=== PATIENT | female | born 1980 | race African-American/Black ===

== ENCOUNTER 2017-04-13 04:29 | Inpatient (IN) | payer OTHER ==
[2017-04-13] MEDS ORDERED: ZOFRAN IV PRN (05:31)
[2017-04-13] MEDS ORDERED: MINERAL OIL PO PRN (05:31)
[2017-04-13] MEDS ORDERED: XYLOCAINE 2% INFILTRATI ONE (05:31)
[2017-04-13] MEDS ORDERED: SUBLIMAZE IV PRN (05:31)
[2017-04-13] MEDS ORDERED: BRETHINE SUB-Q PRN (05:31)
[2017-04-13] MEDS ORDERED: ePHEDrine SULFATE IV PRN (05:31)
[2017-04-13 05:53] LABS: Hematocrit 39.3 % (30.3-42.9); Mean Corpuscular HGB Conc 33 % (30-34); Mean Corpuscular Hemoglobin 31 pg (28-32); Mean Corpuscular Volume 95 fl (79-97); Platelet Count 258 K/mm3 (140-440); Red Blood Count 4.15 M/mm3 (3.65-5.03); Red Cell Distribution Width 13.1 % (13.2-15.2); White Blood Count 12.1 K/mm3 (4.5-11.0)
--- NOTE | 2017-04-13 05:53 | History and Physical Report ---
History of Present Illness Date of examination: 04/13/17 (pt presents to Triage with SROM) Date of admission: 04/13/17 04:42 Chief complaint: my water broke History of present illness: EDC Confirmation: 05/02/2017 Gestational Age: 13 4/7 weeks Past History : 1 Past Medical History: Hepatitis Bsays GI doc says her viral load is very low and needs no meds Long B Pate DO [address] [facility] [address] [facility] Past Surgical History: Reviewed history and no changes required: negative Past Medical History Anesthesia Complications: negative Anemia: negative Autoimmune Disorder: negative Bleeding Disorder: negative Blood Transfusions: negative Breast Disease: negative Diabetes: negative Heart Disease: negative Hypertension: negative Hepatitis/Liver Disease: positive Kidney Disease/UTI: negative Neurologic/Epilepsy/Migraines: negative Phlebitis/Varicosities: negative Psychiatric: negative Pulmonary Disease/Asthma: negative Thyroid Disease: negative Hospitalizations: negative Surgery (Non-obstetrician and gynaecologist): negative Abnormal PAP: negative ROLO Exposure: negative Infertility: negative Uterine Anomaly: negative Uterine Surgery (not C/S): negative Other Gynecologic Problems: negative Infection History Hx of STD: none HIV Risk Eval: low risk Hepatitis B Risk Eval: low risk Personal hx. of genital herpes: no Partner hx. of genital herpes: no Varicella/Chicken Pox Status: Previous Disease Genetic History ADVANCED MATERNAL AGE Congenital Heart Defect: Mom: no Dad: no Basil Disease: Mom: no Dad: no Thalassemia Mom: no Dad: no Neural Tube Defect Mom: no Dad: no Down's Syndrome Mom: no Dad: no Ortega-Sachs Mom: no Dad: no Sickle Cell Disease/Trait Mom: no Dad: no Hemophilia Mom: no Dad: no Muscular Dystrophy Mom: no Dad: no Cystic Fibrosis Mom: no Dad: no Carroll Chorea Mom: no Dad: no Mental Retardation Mom: no Dad: no Fragile X Mom: no Dad: no Other Genetic/Chromosomal Disorder Mom: no Dad: no Child w/other defect Mom: no Dad: no FALSECurrent Allergies (reviewed today): * SEAFOOD (Critical) Laboratory Results Routine Urinalysis Leukocytes: negative Nitrite: negative Urobilinogen: negative Protein: negative Blood: negative Ketone: negative Bilirubin: negative Glucose: negative Urine HCG: positive Review of Systems General Denies fever, chills, sweats, anorexia, fatigue, weakness, malaise, weight loss and sleep disorder. Denies nausea, vomiting, headache, swelling of legs, abdominal pain, vaginal discharge, vaginal bleeding and contractions. Denies vaginal discharge, incontinence, dysuria, hematuria, urinary frequency, amenorrhea, menorrhagia, abnormal vaginal bleeding, pelvic pain, genital sores, decreased libido, painful periods, painful sex, urinary urgency, hot flashes, vaginal dryness, vaginal itching and vaginal odor. CV Denies chest pains, palpitations, syncope, dyspnea on exertion, orthopnea, PND and peripheral edema. Resp Denies cough, dyspnea at rest, excessive sputum, hemoptysis, wheezing and pleurisy. GI Denies nausea, vomiting, diarrhea, constipation, change in bowel habits, abdominal pain, melena, hematochezia, jaundice, gas/bloating, indigestion/ heartburn, dysphagia and odynophagia. Endo Denies cold intolerance, heat intolerance, polydipsia, polyphagia, polyuria and unusual weight change. Breast Denies left breast lump, right breast lump, nipple discharge, bloody discharge from nipple, breast pain, abnormal mammogram and breast enlargement. MS Denies back pain, joint pain, joint swelling, muscle cramps, muscle weakness, stiffness, arthritis, sciatica, restless legs, leg pain at night and leg pain with exertion. Derm Denies rash, itching, dryness and suspicious lesions. Neuro Denies paralysis, paresthesias, headache, seizures, tremors, vertigo, transient blindness, frequent falls, frequent headaches and difficulty walking. Psych Denies depression, anxiety, irritability and mood swings. Eyes Denies blurring, diplopia, irritation, discharge, vision loss, eye pain and photophobia. ENT Denies earache, ear discharge, tinnitus, decreased hearing, nasal congestion, nosebleeds, sore throat and hoarseness. Allergy Denies urticaria, allergic rash, hay fever and recurrent infections. Heme Denies abnormal bruising, bleeding and enlarged lymph nodes. PHYSICAL EXAM HEENT: PERRLA, normal conjunctiva, external nose and nasal mucosa normal, oropharynx clear Neck/Thyroid: supple, thyroid normal Skin no significant abnormal lesions or rashes Chest: respiratory effort normal, clear to auscultation Breasts: normal without skin changes or masses CV: regular, normal S1-S2, no murmur, no rub, no gallop Abdomen: normal bowel sounds, soft, nontender, no HSM Musculoskeletal: grossly normal ROM in joints, no joint tenderness or muscle weakness Neuro: grossly normal DTRs, sensation, strength, cranial nerves Extremities: no clubbing, cyanosis, or edema [employer]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 Vulva/Vagina: No lesions, normal BUS, normal rugae Cervix: No lesions; no cervical motion tenderness Uterus: normal size and position, midline, mobile Fundal Ht: 12 Adnexae: no masses or tenderness Rectovaginal: no masses or tenderness Medications and Allergies Allergies Allergy/AdvReac Type Severity Reaction Status Date / Time SEAFOOD AdvReac Itching Uncoded 10/06/16 11:46 Home Medications Medication Instructions Recorded Confirmed Last Taken Type Nitrofurantoin Coos/M-Cryst 100 mg PO Q12HR #10 capsule 10/05/16 Unknown Rx [Macrobid CAP] Vit No.129/Iron/FA 1 each PO QDAY #30 tablet 10/05/16 Unknown Rx [ Tablet] Active Meds: Active Medications Ephedrine Sulfate (Ephedrine Sulfate) 10 mg IV Q2M PRN PRN Reason: Hypotension Stop: 04/13/17 05:36 Fentanyl (Sublimaze) 100 mcg IV Q2H PRN PRN Reason: Labor Pain Lactated Ringer's (Lactated Ringers) 1,000 mls @ 125 mls/hr IV DIRECT ROSA Oxytocin/Sodium Chloride (Pitocin/Ns 20 Unit/1000ml Drip) 20 units in 1,000 mls @ 125 mls/hr IV DIRECT ROSA Lidocaine (Xylocaine 2%) 20 ml INFILTRATI ONCE ONE Stop: 04/13/17 05:32 Mineral Oil (Mineral Oil) 30 ml PO QHS PRN PRN Reason: Constipation Ondansetron HCl (Zofran) 4 mg IV Q8H PRN PRN Reason: Nausea And Vomiting Terbutaline Sulfate (Brethine) 0.25 mg SUB-Q ONCE PRN PRN Reason: Hyperstimulation/Hypertonicity Stop: 04/13/17 05:32 - Physical Exam Breasts: Positive: deferred Cardiovascular: Regular rate, Normal S1, Normal S2 Lungs: Positive: Normal air movement Abdomen: Positive: normal appearance, soft, normal bowel sounds. Negative: distention, tenderness Genitourinary (Female): Positive: normal external genitalia Vulva: both: normal Vagina: Positive: normal moisture. Negative: discharge Cervix: Negative: lesion, discharge Uterus: Positive: normal size, normal contour Adnexa: both: normal Anus/Rectum: Positive: normal perianal skin, heme negative. Negative: rectal mass, hemorrhoids Extremities: Positive: normal Deep Tendon Reflex Grade: Normal +2 - Obstetrical FHR: category 1 Uterine Contraction Monitor Mode: External Cervical Dilatation: 9 Cervical Effacement Percentage: 100 station: 0 Uterine Contraction Pattern: Regular Uterine Contraction Intensity: Moderate Results Result Diagrams: 04/13/17 05:30 All other labs normal. Laboratory Data-Patient Name: AMARA PATE Test Date Result Blood Type 11/12/2016 O Rh 11/12/2016 Positive Antibody Screen negative Rubella 11/12/2016 immune Serology (RPR) 11/12/2016 NR HBsAg 11/12/2016 Confirm. indicated Hemoglobin 02/02/2017 11.8 Hematocrit 02/02/2017 36.0 Platelets 11/12/2016 341 [id number] Chlamydia DNA 03/30/2017 Negative GC DNA/Culture 03/30/2017 Urine Culture 11/12/2016 Final report Group B Strep cult PAP 11/23/2014 normal HIV 11/12/2016 AFP/Quad Screen Glucola Test 3hr GTT (Fasting) 02/09/2017 91 1 hr 02/09/2017 240 2 hr 02/09/2017 192 3 hr 02/09/2017 189 OPTIONAL LABS-Patient Name:AMARA PATE Test Date Result Varicella Ab Sickle Cell 11/12/2016 Negative PPD Fibronectin Cystic Fibrosis Parvovirus TSH Free T4 Hepatitis C ALT AST Uric Acid Creatinine 24 hr Urine Protein CONCHITA Assessment and Plan 36yo @ 37 weeks with SROM 9cm dilated on arrival. GBS negative Hep B carrier. GDM diet controlled. Orders in EMR - Patient Problems (1) Gestational diabetes mellitus (GDM) Current Visit: Yes Status: Acute Qualifiers: Gestational diabetes mellitus control: G Trimester: T (2) Advanced maternal age (AMA) in Current Visit: Yes Status: Acute (3) Hepatitis B Current Visit: Yes Status: Acute Qualifiers: Viral hepatitis chronicity: V Hepatic coma status: H Hepatitis delta agent presence: H
[2017-04-13] MEDS ORDERED: LACTATED RINGERS 1,000 ML IV SCH (06:00)
[2017-04-13] MEDS ORDERED: PITOCin/NS 20 UNIT/1000ML DRIP 20 UNITS/1,000 ML BAG IV SCH (06:00)
[2017-04-13] MEDS ORDERED: PITOCin/NS 30 UNIT/500ML 30 UNITS/500 ML BAG IV SCH (06:56)
--- NOTE | 2017-04-13 07:53 | Procedure Note ---
OB Delivery Note - Delivery Date of Delivery: 04/13/17 Surgeon: KIRBY DANIELLE (for vacuum extraction) Toolmaker Grade Three: ORTEGA KHALIL Estimated blood loss: 500cc - Vaginal Delivery presentation: vertex Delivery position: OA Intrapartum events: PROM->1hr before delivery, other(please specify) (GDM diet controlled) Delivery induction: none Delivery augmentation: pitocin Delivery monitor: external uterine, internal FHT Route of delivery: vacuum extraction (mat exhaustion, one pull, 2nd midline epis which extended to 3rd. Routine repair 2-0 & 3-0 Vicryl) Indicators for instrumentation: maternal exhaustion Delivery placenta: spontaneous Delivery cord: 3 umbilical vessels Episiotomy: midline Delivery laceration: 3rd degree Delivery repair: vicryl Anesthesia: local, intravenous Delivery comments: Pt presented with SROM @ 0330 this AM When she arrived in Triage was 9 cm dilated. Was completely dilated @ 0600 Began pushing Head OT with slow descent. Requested to LDR to asses for vacuum After > 1 hour push. Vertex @ +3 Pt made aware of need for vacuum. Agrees. present Vacuum applied ML episiotomy cut. Baby delivered with one pull Female placed on mom's abdomen, crying. Cord blood drawn. Placenta and membrane delivered complete and intact, 3 vessel cord. Pit IVFs. Placenta to pathology. for repair 3rd degree. 8/9, EBL 500, Wgt 6-1. Mom and baby remain LDR stable. - A at 1 minute: 8 at 5 minutes: 9 Gender: Female (wgt 6-1)
[2017-04-13] MEDS ORDERED: XYLOCAINE 2% INFILTRATI NR (08:00)
[2017-04-13] MEDS ORDERED: DULCOLAX PR PRN (11:03)
[2017-04-13] MEDS ORDERED: BENADRYL PO PRN (11:03)
[2017-04-13] MEDS ORDERED: TUCKS PAD TP PRN (11:03)
[2017-04-13] MEDS ORDERED: PERCOCET 5/325 PO PRN (11:03)
[2017-04-13] MEDS ORDERED: PHENERGAN PO PRN (11:03)
[2017-04-13] MEDS ORDERED: TYLENOL PO PRN (11:03)
[2017-04-13] MEDS ORDERED: DERMOPLAST TP PRN (11:03)
[2017-04-13] MEDS ORDERED: MILK OF MAGNESIA PO PRN (11:03)
[2017-04-13] MEDS ORDERED: LANSINOH TP PRN (11:03)
[2017-04-13] MEDS ORDERED: NORCO 5/325 PO PRN (11:03)
[2017-04-13] MEDS ORDERED: SODIUM CHLORIDE FLUSH SYRINGE 10 ML IV NR (12:00)
[2017-04-13] MEDS: MOTRIN PO SCH ×3 (12:37→22:48)
[2017-04-13] MEDS: FEOSOL PO SCH (22:48)
[2017-04-13] MEDS: COLACE PO SCH (22:48)
[2017-04-14 00:33] LABS: Hematocrit 27.1 % (30.3-42.9); Hemoglobin 9.1 gm/dl (10.1-14.3)
[2017-04-14] MEDS: MOTRIN PO SCH (05:52)
[2017-04-14] MEDS ORDERED: BOOSTRIX IM ONE ×2 (06:05→11:03)
--- NOTE | 2017-04-14 07:48 | Progress Note ---
Assessment and Plan Patient resting w/o complaints; VSSAF, lochia scant, H&H 9.1/27.1 (asymptomatic , anemia d/c blood loss).patient desires d/c home today if stable. plan for routine f/u in office. - Patient Problems (1) Anemia associated with acute blood loss Current Visit: Yes Status: Acute Plan to address problem: asymptomatic Continue taking vitamin and increase dietary sources of iron. (2) Hepatitis B Current Visit: Yes Status: Acute Qualifiers: Viral hepatitis chronicity: V Hepatic coma status: H Hepatitis delta agent presence: H (3) Vacuum extraction, delivered, current hospitalization Current Visit: Yes Status: Acute Subjective - Subjective Date of service: 04/14/17 Principal diagnosis: day #1 s/p vac assisted vaginal delivery Patient reports: appetite normal, voiding normally, pain well controlled, ambulating normally, no dizzy ambulation, no nauseated Naylor: doing well, nursing well (breast and bottle feeding) Objective - Vital Signs Latest vital signs: Vital Signs Temp Pulse Pulse Pulse Resp BP BP 04/14/17 00:50 98.7 F 93 H 20 103/58 04/13/17 15:42 99.4 F 84 20 94/68 04/13/17 12:38 20 04/13/17 11:50 98.8 F 88 18 04/13/17 10:30 98.9 F 73 20 04/13/17 09:20 69 97/69 04/13/17 09:05 78 99/66 04/13/17 08:50 83 101/65 04/13/17 08:47 79 04/13/17 08:35 78 104/69 04/13/17 08:20 75 114/77 BP Pulse Ox 04/14/17 00:50 04/13/17 15:42 04/13/17 12:38 04/13/17 11:50 110/75 04/13/17 10:30 111/66 04/13/17 09:20 04/13/17 09:05 04/13/17 08:50 04/13/17 08:47 98 04/13/17 08:35 04/13/17 08:20 Intake and Output 04/13/17 04/14/17 04/14/17 22:59 06:59 14:59 Intake Total 960 360 Output Total 500 Balance 460 360 Intake: Oral 960 Intake, Free Water 360 Output: Urine 500 Void 500 Other: Total, Intake Amount 240 Total, Output Amount 500 Voiding Method Toilet # Voids Void 1 2 - Exam Breasts: Present: normal, Cardiovascular: Present: Regular rate Lungs: Present: Clear to auscultation, Normal air movement Abdomen: Present: normal appearance, soft Vulva: both: laceration/episiotomy Uterus: Present: normal, firm, fundal height below umbilicus Extremities: Present: normal Deep Tendon Reflex Grade: Normal +2 Incision: Present: normal, dry, intact - Labs Labs: Abnormal lab results 04/14/17 Range/Units 00:17 Hgb 9.1 L D (10.1-14.3) gm/dl Hct 27.1 L D (30.3-42.9) %
--- NOTE | 2017-04-14 07:53 | Discharge Summary ---
Providers - Providers Date of Admission: 04/13/17 04:42 Date of discharge: 04/14/17 (desires d/c home ) Attending physician: ANDRES ALEMAN Primary care physician: ANDRES ALEMAN Hospitalization Reason for admission: active labor Delivery: vacuum extraction Episiotomy: midline Laceration: 3rd degree Incision: normal, dry, intact Other procedures: none complications: none Discharge diagnosis: IUP at term delivered baby: female Hospital course: vac assisted vaginal Condition at discharge: Good Disposition: DISCHARGED TO HOME OR SELFCARE - Discharge Diagnoses (1) Anemia associated with acute blood loss Status: Acute (2) Hepatitis B Status: Acute Qualifiers: Viral hepatitis chronicity: V Hepatic coma status: H Hepatitis delta agent presence: H (3) Vacuum extraction, delivered, current hospitalization Status: Acute Plan - Discharge Medications Prescriptions: HYDROcodone/APAP 5-325 [[place] 5/325] 1 each PO Q6HR PRN #20 tablet PRN Reason: Pain Ibuprofen [Motrin 800 MG tab] 800 mg PO Q8HR PRN #30 tablet PRN Reason: Pain - Provider Discharge Summary Activity: routine, no sex for 6 weeks, no heavy lifting 4 weeks, no strenuous exercise Diet: routine Instructions: routine Additional instructions: [] Smoking cessation referral if applicable(refer to patient education folder for contact #) [] Refer to [facility] Booklet Call your doctor immediately for: * Fever > 100.5 * Heavy vaginal bleeding ( >1 pad per hour) * Severe persistent headache * Shortness of breath * Reddened, hot, painful area to leg or breast * Drainage or odor from incision. * Keep incision clean and dry at all times and follow doctor's instructions regarding bathing/showering - Follow up plan Follow up: ANDRES ALEMAN MD [Primary Care Provider] - 05/19/17 (Congratulations!! Please call [phone] to schedule your visit in 4 weeks. Call for any questions or concerns.)
[2017-04-14] MEDS ORDERED: PRENATAL VITAMIN PO SCH (10:00)
[2017-04-14] MEDS ORDERED: M-M-R II VACCINE SUB-Q ONE (11:03)
[2017-04-14] MEDS: COLACE PO SCH (11:22)
[2017-04-14] MEDS: FEOSOL PO SCH (11:22)
[2017-04-14 12:43] VITALS: BP 94/62
== END 2017-04-14 19:10 | disposition home or self-care (01) | DRG 774 ==
LOC: TRG 04:29 → LD 04:42 → OB 10:02
PROVIDERS: ADMIT Obstetrics & Gynecology; ATTEND Obstetrics & Gynecology
PROC: 10D07Z6 Extraction of Products of Conception, Vacuum, Via Natural or Artificial Opening (ICD-10-PCS; principal; 2017-04-13)
PROC: 0W8NXZZ Division of Female Perineum, External Approach (ICD-10-PCS; 2017-04-13)
PROC: 0DQR0ZZ Repair Anal Sphincter, Open Approach (ICD-10-PCS; 2017-04-13)
DX: O24.429 Gestational diabetes mellitus in childbirth, unspecified control (principal); O98.413 Viral hepatitis complicating pregnancy, third trimester; D62 Acute posthemorrhagic anemia; O70.20 Third degree perineal laceration during delivery, unspecified; B16.9 Acute hepatitis B without delta-agent and without hepatic coma; O42.92 Full-term premature rupture of membranes, unspecified as to length of time between rupture and onset of labor; O99.02 Anemia complicating childbirth; O75.81 Maternal exhaustion complicating labor and delivery; O09.513 Supervision of elderly primigravida, third trimester; Z3A.37 37 weeks gestation of pregnancy; Z91.013 Allergy to seafood; Z37.0 Single live birth
CPT/HCPCS: 36415; 82962; 85014; 85018; 85027; 86592; 86850; 86900; 86901; 88307; 90471; 90715; 99211; G0463; J2590; J7120